=== PATIENT | male | born 1975 | race Caucasian/White ===

== ENCOUNTER → 2019-12-11 11:10 | Outpatient (CLI) | payer OTHER, SELFPAY ==
--- NOTE | ~2019-12-11 | US_ITS ---
EXAMINATION: US thyroid DATE: 12/11/2019 11:29 INDICATION: Thyroid lesion TECHNIQUE: Multiple ultrasound images of the thyroid were obtained. COMPARISON: 10/24/2018 FINDINGS: The right thyroid lobe measures 5.4 x 1.8 x 1.5 cm. The left thyroid lobe measures 4.9 x 1.9 x 1.4 c m. No interval change in a wider than tall 1.3 cm solid isoechoic nodule in the inferior left thyroi d with peripheral shadowing rim calcification (TI-RADS 4, moderately suspicious , FNA if >=1.5 cm, an nual followup is >1 cm). There are 3 small solid hyperechoic nodules with smooth margins and without echogenic foci (TI-RADS 3, mildly suspicious , FNA if >=2.5 cm, annual followup is >1.5 cm) which lon sure 6 mm in the mid left thyroid and 5 mm in the superior and 4 mm in the mid right thyroid. Diffuse heterogeneously decreased echogenicity with coarsened echotexture throughout the thyroid. IMPRESSION: 1. Heterogeneous thyroid with coarsened echotexture and a few small thyroid nodules with no interval change in the largest and highest-grade 1.3 cm TI RADS 4 nodule in the left thyroid for which continu ed annual ultrasound is recommended. Reviewed, dictated and finalized at location A. IMPRESSION: 1. Heterogeneous thyroid with coarsened echotexture and a few small thyroid nod ules with no interval change in the largest and highest-grade 1.3 cm TI RADS 4 nodule in the left thyroid for which continued annual ultrasound is recommended .
== END ==
PROVIDERS: PCP Student in an Organized Health Care Education/Training Program; Visit Provider Student in an Organized Health Care Education/Training Program
DX: E07.89 Other specified disorders of thyroid (principal)
CPT/HCPCS: 76536

== ENCOUNTER → 2020-11-18 13:04 | Outpatient (CLI) | payer OTHER, SELFPAY ==
--- NOTE | ~2020-11-18 | US_ITS ---
EXAMINATION: US thyroid DATE: 11/18/2020 13:22 INDICATION: Thyroid nodule. TECHNIQUE: Multiple ultrasound images of the thyroid were obtained. COMPARISON: Ultrasound 12/11/2019, 10/24/2018 FINDINGS: The right thyroid lobe measures 3.5 x 1.4 x 1.3 cm. The left thyroid lobe measures 3.8 x 1.5 x 1.4 c m. The thyroid is diffusely heterogeneous and hypoechoic. Vascularity is normal. No discrete nodule. IMPRESSION: 1. Heterogeneous thyroid, likely chronic lymphocytic (Fabiana) thyroiditis. Reviewed, dictated and finalized at location A.
== END ==
PROVIDERS: PCP Student in an Organized Health Care Education/Training Program; Visit Provider Student in an Organized Health Care Education/Training Program
DX: E04.1 Nontoxic single thyroid nodule (principal)
CPT/HCPCS: 76536

== ENCOUNTER → 2022-02-01 12:17 | Outpatient (CLI) | payer OTHER, SELFPAY ==
--- NOTE | ~2022-02-01 | US_ITS ---
EXAMINATION: US thyroid DATE: 02/01/2022 13:41 INDICATION: Thyroid nodule. TECHNIQUE: Multiple ultrasound images of the thyroid were obtained. COMPARISON: Ultrasound 11/18/2020, 10/24/2018 FINDINGS: The right thyroid lobe measures 4.6 x 1.6 x 1.5 cm. The left thyroid lobe measures 3.8 x 1.5 x 1.3 c m. The thyroid is diffusely heterogeneous and hypoechoic. Vascularity is normal. In the right thyroi d lobe, there is a 13 mm solid, hypoechoic, wider than tall nodule with ill-defined margin and periph eral calcification (TI-RADS TR4). IMPRESSION: 1. Thyroid nodule, stable from 10/24/2018. Thyroid ultrasound is recommended in 2 years. 2. Heterogeneous thyroid, likely chronic lymphocytic (Fabiana) thyroiditis. Reviewed, dictated and finalized at location A. [employer]
== END ==
PROVIDERS: PCP Anesthesiology; Visit Provider Student in an Organized Health Care Education/Training Program
DX: E04.1 Nontoxic single thyroid nodule (principal)
CPT/HCPCS: 76536

== ENCOUNTER 2024-07-03 09:55 | Outpatient (CLI) | payer OTHER, SELFPAY ==
--- NOTE | ~2024-07-03 | US_ITS ---
EXAMINATION: US thyroid DATE: 07/03/2024 10:17 INDICATION: Thyroid nodule TECHNIQUE: Multiple ultrasound images of the thyroid were obtained. COMPARISON: 02/01/2022 and dating back to 10/24/2018 FINDINGS: The right thyroid lobe measures 3.1 x 1.5 x 1.7 cm. Within the mid to lower pole of the right lobe of the thyroid gland is a 6.0 x 5.4 x 6.2 mm nodule: Composition -solid or almost completely solid (2) Echogenicity -isoechoic or hyperechoic (1) Shape - wider than tall Margin - smooth Echogenic foci - none. = TR3 Mildly suspicious Greater than or equal to 1.5 cm: Follow-up Greater than or equal to 2.5 cm: FNA . Within the mid to lower pole of the right lobe of the thyroid gland is a 11.3 x 6.5 x 6.8 mm nodule: Composition - mixed cystic and solid (1) Echogenicity -anechoic Shape - wider than tall Margin - smooth Echogenic foci -rim calcifications (2) = TR3 Mildly suspicious Greater than or equal to 1.5 cm: Follow-up Greater than or equal to 2.5 cm: FNA . The left thyroid lobe measures 3.0 x 1.3 x 1.3 cm. The isthmus measures 0.35cm in anterior to posterior dimension. There is otherwise heterogeneous echotexture throughout the remainder of the thyroid gland. No additi onal discrete nodules identified. Normal vascular flow is present. IMPRESSION: Mildly suspicious nodules (TR 3) within the right lobe of the thyroid gland. These nodules do not meet the size criteria for follow-up or FNA. While follow-up is not recommended (as per TI-RADS criteria), it may be performed. Reviewed, dictated and finalized at location A. IMPRESSION: Mildly suspicious nodules (TR 3) within the right lobe of the thyroid gland. These nodules do not meet the size criteria for follow-up or FNA. While follow-up is not recommended (as per TI-RADS criteria), it may be perform ed.
== END 2024-07-03 09:56 | disposition home or self-care (01) ==
LOC: MICIMG 09:58
PROVIDERS: PCP Anesthesiology; Visit Provider Student in an Organized Health Care Education/Training Program
DX: E04.1 Nontoxic single thyroid nodule (principal)
CPT/HCPCS: 76536